=== PATIENT | female | born 1970 | race Caucasian/White ===

== ENCOUNTER 2018-12-23 20:54 | Emergency (ER) | payer SELFPAY ==
[~2018-12-23 20:54] MED LIST: Iopamidol 370 76% 100 ML VIAL ONE
[2018-12-23] MEDS ORDERED: Morphine 4 MG/ML VIAL ONE (21:14)
[2018-12-23] MEDS ORDERED: Ondansetron PF 4 MG/2 ML Vial ONE ×2 (21:15→22:46)
[2018-12-23 21:40] LABS: #Basophils 0.1 thou/uL (0.0-0.2); #Eosinphils 0.1 thou/uL (0.0-0.7); #Lymphocytes 2.3 thou/uL (1.20-3.40); #Monocytes 0.6 thou/uL (0.11-0.59); #Neutrophils 2.5 thou/uL (1.40-6.50); %Basophils 1.3 % (0.0-1.0); %Eosinophils 2.4 % (0.0-10.0); %Lymphocytes 40.7 % (21.0-51.0); %Neutrophils 44.6 % (42.0-75.0); Hemoglobin 9.8 g/dL (12.0-16.0); Hypochromia SLIGHT = 6-15 cells (100X) (0-5/hpf); MDiff Complete? YES; Mean Corpuscular HGB CONC 29.1 g/dL (32.0-36.0); Mean Corpuscular Hemoglobin 18.1 pg (27.0-31.0); Mean Platelet Volume 5.7 fL (7.4-10.4); Microcytosis MODERATE=15-30 cells (100X) (0-5/hpf); Platelet Count 512 thou/uL (130-400); Platelet Morphology Comment Appears Increased; RBC Distribution Width 18.8 % (11.5-14.5); Red Blood Cell (RBC) Count 5.44 mill/uL (4.20-5.40); Reflex for Review?? NO; White Blood Cell (WBC) Count 5.6 thou/uL (4.8-10.8)
[2018-12-23 21:44] LABS: ALT (SGPT) 14 U/L (8-55); AST (SGOT) 15 U/L (5-34); Albumin 4.5 g/dL (3.5-5.0); Alkaline Phosphatase 190 U/L (40-150); Anion Gap 17 mmol/L (10-20); BUN (Urea Nitrogen) 12 mg/dL (7.0-18.7); Bilirubin, Total 0.4 mg/dL (0.2-1.2); Calc. Creatinine Clearance 0 mL/min (70-130); Calcium 10.3 mg/dL (7.8-10.44); Carbon Dioxide 27 mmol/L (22-29); Chloride 101 mmol/L (98-107); Estimated GFR-MDRD 65; Globulin 3.3 g/dL (2.4-3.5); Glucose 98 mg/dL (70-105); Lipase 20 U/L (8-78); Potassium 3.4 mmol/L (3.5-5.1); Protein, Total 7.8 g/dL (6.0-8.3); Sodium 142 mmol/L (136-145)
[2018-12-23 21:49] LABS: Bilirubin Negative (Negative); Blood, Urine Negative (Negative); Glucose, Urine (Dipstick) Negative (Negative); Leukocyte Negative (Negative); Nitrite Negative (Negative); Protein, Urine (Dipstick) 30 mg/dL (Neg-Trace); Urobilinogen 0.2 mg/dL (Less than 2)
[2018-12-23 21:51] LABS: Clarity Slightly Cloudy (Clear)
[2018-12-23 21:56] LABS: Bacteria/HPF 3+ HPF (None Seen); RBC/HPF 0-3 HPF (0-3); Squamous Epithelial 21-50 HPF (0-3); WBC/HPF 0-3 HPF (0-3)
--- NOTE | 2018-12-23 22:43 | CT ---
CT abdomen and pelvis with IV contrast HISTORY: Abdomen pain. FINDINGS: The lung bases are clear. Small cysts within the liver. Projecting medially from the inferi or pole of the right kidney is a partially exophytic heterogeneous mass with some internal enhancement that measures up to 2.1 cm length by 1.4 cm width by 1.7 cm depth. No free air or free fl uid. No evidence of bowel obstruction. Appendix is not inflamed. Urinary bladder is unremarkable. Mildly displaced fractures involve the right transverse processes at L2, L3, and L4. Bilateral spondy lolysis at the lumbosacral junction with grade 2 spondylolisthesis. IMPRESSION: Heterogeneously enhancing exophytic lesion from the inferior pole right kidney. Neoplasm a likely. Please consider nonemergent urologic consultation and MRI of the kidneys, with and without contrast, for better characterization. Right transverse process fractures at L2, L3, and L4. Age indeterminate. Bilateral spondylolysis and grade 2 spondylolisthesis at the lumbosacral junction.
== END 2018-12-24 00:02 | disposition home or self-care (01) ==
LOC: ERS 20:54
DX: N28.89 Other specified disorders of kidney and ureter (principal); R11.2 Nausea with vomiting, unspecified; I10 Essential (primary) hypertension; I25.2 Old myocardial infarction; F32.9 Major depressive disorder, single episode, unspecified; F17.210 Nicotine dependence, cigarettes, uncomplicated
CPT/HCPCS: 36415; 74177; 80053; 81003; 81015; 83605; 83690; 83880; 84484; 85025; 87040; 87149; 93005; 96361; 96374; 96375; 96376; J2270; J2405; Q9967

== ENCOUNTER 2019-02-12 11:54 | Emergency (ER) | payer SELFPAY ==
[2019-02-12 13:13] LABS: #Basophils 0.1 thou/uL (0.0-0.2); #Eosinphils 0.3 thou/uL (0.0-0.7); #Lymphocytes 2.4 thou/uL (1.20-3.40); #Monocytes 0.6 thou/uL (0.11-0.59); #Neutrophils 4.5 thou/uL (1.40-6.50); %Basophils 0.8 % (0.0-1.0); %Eosinophils 3.3 % (0.0-10.0); %Lymphocytes 30.5 % (21.0-51.0); %Monocytes 7.3 % (0.0-10.0); %Neutrophils 58.2 % (42.0-75.0); Hemoglobin 8.7 g/dL (12.0-16.0); Mean Corpuscular HGB CONC 28.4 g/dL (32.0-36.0); Mean Corpuscular Hemoglobin 18.2 pg (27.0-31.0); Mean Platelet Volume 11.3 fL (7.4-10.4); Platelet Count 345 thou/uL (130-400); RBC Distribution Width 17.1 % (11.5-14.5); Red Blood Cell (RBC) Count 4.78 mill/uL (4.20-5.40); White Blood Cell (WBC) Count 7.7 thou/uL (4.8-10.8)
[2019-02-12] MEDS ORDERED: Ondansetron PF 4 MG/2 ML Vial ONE (13:13)
[2019-02-12] MEDS ORDERED: ISOVUE-370 76%-LOCM 1 ML ONE (13:15)
[2019-02-12 13:21] LABS: ALT (SGPT) 10 U/L (8-55); AST (SGOT) 17 U/L (5-34); Albumin 4.1 g/dL (3.5-5.0); Alkaline Phosphatase 151 U/L (40-150); Anion Gap 13 mmol/L (10-20); BUN (Urea Nitrogen) 10 mg/dL (7.0-18.7); Bilirubin, Total 0.2 mg/dL (0.2-1.2); Calc. Creatinine Clearance 0 mL/min (70-130); Calcium 9.6 mg/dL (7.8-10.44); Carbon Dioxide 25 mmol/L (22-29); Chloride 103 mmol/L (98-107); Estimated GFR-MDRD 82; Globulin 2.8 g/dL (2.4-3.5); Glucose 113 mg/dL (70-105); Lipase 26 U/L (8-78); Potassium 3.8 mmol/L (3.5-5.1); Protein, Total 6.9 g/dL (6.0-8.3); Sodium 137 mmol/L (136-145)
--- NOTE | 2019-02-12 13:32 | CT ---
CT ABDOMEN AND PELVIS WITH IV CONTRAST 02/12/2019 CLINICAL INFORMATION: Abdominal pain and abdominal distention with nausea. COMPARISON: 12/23/2018 Technique: Multiple contiguous axial CT images are obtained through the abdomen and pelvis with IV contrast. Cor onal reformatted images are provided. FINDINGS: Lower Chest: Minimal linear atelectasis versus scarring is present at the left lung base. Vessels: Mild vascular calcifications are seen in the abdominal aorta and involving the iliac arterie s. Abdomen: Portal vein:Patent Gallbladder: Within normal limits for CT imaging. Liver: Few subcentimeter hypodense lesions are again seen in the right hepatic lobe with a stable 1.7 cm fluid attenuation cystic lesion in the medial segment left hepatic lobe most compatible with a small cyst. There is also an additional small subcentimeter hypodense lesion in the medial segment le ft hepatic lobe unchanged from prior exam. Spleen: within normal limits. Pancreas: within normal limits. Adrenals: within normal limits. Kidneys: The previously described heterogeneously enhancing exophytic 1.7 cm mass medial aspect infer ior pole right kidney is again seen and stable in size. This is again worrisome for neoplastic process. Bowel: There is colonic diverticulosis. Loops of small bowel are normal in caliber. Appendix: The appendix is visualized and normal in caliber. Peritoneum: No ascites or free air; no fluid collection. Mesentery and Retroperitoneum: No enlarged mesenteric or retroperitoneal lymph nodes. Abdominal Wall: within normal limits. Pelvis: Reproductive Organs: No pelvic masses. Pelvis within normal limits. Bladder: within normal limits. Bones: Grade 1-2 spondylolisthesis lumbosacral junction is again noted with prominent degenerative ch anges at this level with mild degrees of degenerative change in the remainder of the spine. IMPRESSION: 1. Stable heterogeneously enhancing exophytic lesion inferior pole right kidney. Findings are again w orrisome for neoplastic process. Nonemergent urological consultation is again recommended. MRI may be helpful for further characterization of this cystic lesion. 2. Stable grade 1-2 spondylolisthesis lumbosacral junction with prominent degenerative changes at thi s level. 3. Stable subcentimeter too small to characterize hypodense lesions in each lobe of the liver with a larger fluid attenuation lesion in the left hepatic lobe. These lesions may represent hepatic cysts. 4. Colonic diverticulosis.
[2019-02-12] MEDS ORDERED: Ketorolac Tromethamine 30 MG/ML VIAL ONE (15:14)
--- NOTE | 2019-02-12 15:42 | ULT ---
GALLBLADDER ULTRASOUND: HISTORY:Abdominal pain FINDINGS: Exam is limited due to body habitus. The liver demonstrates homogeneous echotexture without focal mass or intrahepatic biliary ductal dila tation. Lesions noted on the CT scan from earlier today are not visualized. Tiny nonshadowing foci in the gallbladder may represent tiny calculi. No gallbladder wall thickening or pericholecystic fluid are seen. The right kidney and pancreas appear normal. The right renal mass noted on the CT scan is not visuali zed on the study. The common duct [id number] in diameter. No free fluid is seen in the Montemayor's pouch. IMPRESSION: Limited exam. Probable tiny gallbladder calculi.
[2019-02-12 16:50] LABS: Bacteria/HPF None Seen HPF (None Seen); Bilirubin Negative (Negative); Blood, Urine Negative (Negative); Clarity Clear (Clear); Glucose, Urine (Dipstick) Normal (Negative); Leukocyte 75 Leu/uL (Negative); Nitrite Negative (Negative); Protein, Urine (Dipstick) Negative (Neg-Trace); RBC/HPF 0-3 HPF (0-3); Squamous Epithelial 0-3 HPF (0-3); Urobilinogen Normal mg/dL (Less than 2)
== END 2019-02-12 16:25 | disposition home or self-care (01) ==
LOC: ERS 11:54
DX: N28.9 Disorder of kidney and ureter, unspecified (principal); D64.9 Anemia, unspecified; I25.2 Old myocardial infarction; I10 Essential (primary) hypertension; F32.9 Major depressive disorder, single episode, unspecified; F17.210 Nicotine dependence, cigarettes, uncomplicated; R11.2 Nausea with vomiting, unspecified
CPT/HCPCS: 36415; 74177; 76705; 80053; 81003; 81015; 83605; 83690; 85025; 96361; 96374; 96375; J1885; J2405; Q9966